=== PATIENT | female | born 1995 | race African-American/Black ===

== ENCOUNTER 2023-07-22 13:53 | Emergency (ER) | payer MEDICAID, OTHER ==
[~2023-07-22] VITALS: Ht 165.1 cm; Wt 91.0 kg
[2023-07-22 13:55] VITALS: O2SAT 99
[2023-07-22 18:07] VITALS: BP 122/78; PULSE 100; RESP 18; TEMP 98.2
== END 2023-07-22 15:24 | disposition left against medical advice (07) ==
LOC: ER 13:53
DX: Z53.21 Procedure and treatment not carried out due to patient leaving prior to being seen by health care provider (principal)
CPT/HCPCS: 99281

== ENCOUNTER 2023-08-08 09:58 | Emergency (ER) | payer MEDICAID, OTHER ==
[~2023-08-08] VITALS: Ht 170.2 cm; Wt 85.0 kg
[2023-08-08 10:00] VITALS: TEMP 98.4; O2SAT 98
[2023-08-08] MEDS ORDERED: ONDANSETRON HCL 4MG/2ML INJ IV STA (10:22)
[2023-08-08] MEDS ORDERED: MORPHINE SULFATE 4 MG/ML CPJ (NOT FOR IM USE) IV STA (10:22)
[2023-08-08] MEDS ORDERED: FAMOTIDINE 20MG/2ML VIAL IV ONE (10:30)
[2023-08-08] MEDS ORDERED: SODIUM CHLORIDE 0.9% 1,000 ML IV ONE (10:30)
[2023-08-08 11:39] LABS: HEMATOCRIT. 39.6 % (36.0-48.0); HEMOGLOBIN. 12.7 g/dL (12.0-16.0); MEAN CORPUSCULAR HEMOGLOBIN 28.7 pg (28.0-32.0); MEAN CORPUSCULAR HGB CONC 32.1 g/dL (31.0-37.0); MEAN CORPUSCULAR VOLUME 89.4 fL (81.0-99.0); MEAN PLATELET VOLUME 8.6 fl (7.4-10.4); PLATELET 310 x1000/uL (130-400); RED BLOOD CELL COUNT 4.43 mill/uL (4.2-5.4); RED CELL DISTRIBUTION WIDTH 14.8 % (11.6-14.6); WHITE BLOOD COUNT 15.3 x1000/uL (4.5-11.0)
[2023-08-08 11:49] LABS: DIFFERENTIAL COMMENT 1
[2023-08-08 11:50] LABS: HCG SCREEN NEGATIVE
[2023-08-08 12:22] LABS: CLARITY URINE CLOUDY (CLEAR); COLOR URINE YELLOW (YELLOW); GLUCOSE URINE NEGATIVE (NEGATIVE); KETONES URINE 1+ (NEGATIVE); LEUKOCYTE ESTERASE URINE NEGATIVE (NEGATIVE); NITRITE URINE NEGATIVE (NEGATIVE); OCCULT BLOOD URINE NEGATIVE (NEGATIVE); PH URINE 5.5 (4.5-8.0); PROTEIN URINE NEGATIVE (NEGATIVE); SPECIFIC GRAVITY URINE 1.006 (1.005-1.030); UROBILINOGEN URINE 0.2 E.U./dL (0.2-1.0)
[2023-08-08 12:25] LABS: RBC URINE NONE SEEN /hpf (0-2); SQUAMOUS EPITHELIAL CELL URINE 1+ /lpf (RARE/1+); WBC URINE NONE SEEN /hpf (0-2); YEAST URINE NONE SEEN
[2023-08-08 12:30] LABS: CHLORIDE 108 mEq/L (98-107); INDEX HEMOLYSI 1 (1-3); INDEX ICTERIC 1 (1-4); INDEX LIPEMIC 1 (1-3); POTASSIUM 3.8 mEq/L (3.5-5.1); SODIUM 139 mEq/L (136-145)
[2023-08-08 12:40] LABS: ALANINE AMINOTRANSFERASE 18 IU/L (13-61); ALBUMIN 3.4 g/dL (3.4-5.0); ASPARTATE AMINOTRANSFERASE 11 IU/L (15-37); BILIRUBIN TOTAL 0.3 mg/dL (0.1-1.0); CARBON DIOXIDE 21 mEq/L (21-32); CREATININE 0.8 mg/dL (0.6-1.3); GLUCOSE 81 mg/dL (70-105); PROTEIN TOTAL 7.3 g/dL (6.0-8.3); UREA NITROGEN BLOOD 15 mg/dL (7-21)
[2023-08-08 12:45] LABS: BACTERIA URINE FEW
[2023-08-08 12:58] LABS: PLATELET ESTIMATE NORMAL; TOXIC VACUOLATION 1+
[2023-08-08] MEDS ORDERED: ONDA4TAB50 MT (15:55)
[2023-08-08 17:02] VITALS: BP 115/73; PULSE 70; RESP 16
== END 2023-08-08 17:04 | disposition home or self-care (01) ==
LOC: ER 09:58
DX: R10.13 Epigastric pain (principal)
CPT/HCPCS: 80053; 81003; 84703; 83690; 85025; 36415; 74176; 96374; 96375; 99285; J3490; J2405; J2270; J7030; Z7610